=== PATIENT | male | born 1950 | race African-American/Black ===

== ENCOUNTER 2018-06-07 20:47 | Emergency (ER) | payer OTHER ==
--- NOTE | 2018-06-07 21:02 | PDOC ---
Attending Attestation - Resident Resident Name: Bentley - ED Attending Attestation I have performed the following: I have examined & evaluated the patient, The case was reviewed & discussed with the resident, I agree w/resident's findings & plan, Exceptions are as noted - HPI HPI: 06/07/18 22:07 Mr Davis is a 67 yo M h/o Downs Syndrome, Alzheimers dementia who presents from his facility due to an episode of emesis vs. cough Pt is s/p a recent admission to this facility for pneumonia (and ? possible admission to OSH for the same) Pt was reported by nursing supervisor lens generating (Jacques) to have several episodes of emesis vs productive cough - Physicial Exam PE: 06/07/18 22:24 Awake and alert Responsive to examiner RRR Lung are clear to auscultation no abd tenderness to palpation No lower extremity edema - Medical Decision Making 06/07/18 22:25 pt observed in the ER Demonstrates no tachycardia, hypoxia, hypotension, tachypnea Will discharge to home follow up with PMD Return to the ER for any other concerns or complaints <Verenice Bryant - Last Filed: 06/07/18 22:07> - HPI HPI: 06/07/18 22:29 The patient is a 67-year-old male with past medical history significant for MR, down syndrome, Alzheimer's hypothyroidism, GOUT, HTN, hearing loss, HLD, and cardiomyopathy presents to the emergency department with a cough. As per aide present, the patient had a productive cough, with phlegm production. The aide states patient is at baseline and interactive. Unable to get a detailed history due to the patients mental status. Allergies: brimonidine (alphagan) and clams. Social history: Unknown Surgical history: Unknown. PCP: [facility] Neurology: Dr. Ran Mariscal Nephrology: Dr. Tristian Wilson. <Elizabeth Mathew - Last Filed: 06/07/18 22:29>
[2018-06-07 21:10] VITALS: BMI 26.5
[2018-06-07 22:20] VITALS: PULSE 63
[2018-06-07 22:22] VITALS: BP 138/75; TEMP 98
--- NOTE | 2018-06-07 22:34 | PDOC ---
History of Present Illness - General Stated Complaint: VOMITING Time Seen by Provider: 06/07/18 21:02 History Source: Care Provider, Old Records Exam Limitations: Dementia - History of Present Illness Initial Comments: 67 y/o male presenting to [facility] ER from [facility] via facility car with conflicting reports. Pt is diagnosed with Down's Syndrome, Alzheimer's Dementia , and is an unreliable. He is accompanied by his therapist, Susie Luo. She reports Brian spit up clear phlegm once this evening; something he does with some frequency. She has been present with the pt all day, and denies observing mental status changes, behavioral changes, vomiting, coughing, difficulty breathing, or other signs of illness. She states, he does not look sick. Telephone conversation with nurse manager database at [facility], Aba, who reports the pt vomited copious amounts of emesis three times today as well as a change in mental status. He sent the pt to the hospital with concern, as the pt was recently discharged from [facility] after admission for pneumonia. Therapist Luo refutes these claims and notes the nurse manager database was only around the pt briefly for evening rounds. 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 BPH Past History - Past Medical History Allergies/Adverse Reactions: Allergies Allergy/AdvReac Type Severity Reaction Status Date / Time brimonidine [From Alphagan P] Allergy Verified 06/07/18 21:04 clams Allergy Verified 06/07/18 21:04 Home Medications: Ambulatory Orders Albuterol 0.083% Nebulizer Michelle [Ventolin 0.083% Nebulizer Soln -] 1 neb NEB Q4H 03/31/18 Allopurinol [Zyloprim -] 100 mg PO DAILY 03/31/18 Eyelid Cleanser Combination 9 [Systane] 1 each TP HS 03/31/18 Levothyroxine [Synthroid -] 75 mcg PO DAILY 03/31/18 Memantine HCl [Namenda -] 10 mg PO BID 03/31/18 Polyvinyl Alcohol [Liquitears] 15 ml OP QID 03/31/18 Sodium Chloride [Saline Nose [place]] 0.65 ml NS TID 03/31/18 Tamsulosin HCl 0.4 mg PO ASDIR 03/31/18 Travoprost [Travatan Z] 5 ml OP HS 03/31/18 Calcium Carbonate/Vitamin D3 [Calcium 500-Vit D3 200 Caplet] PO BID 04/02/18 Dextromethorphan HBr/Quinidine [Nuedexta 20-10 mg Capsule] 10 mg PO DAILY Donepezil HCl 10 mg PO BID 04/02/18 Doxycycline Monohydrate [Mondoxyne Nl] 100 mg PO BID #11 capsule 04/02/18 COPD: No HTN: Yes Hypercholesterolemia: Yes Psychiatric Problems: (down syndrome) Thyroid Disease: Yes - Suicide/Smoking/Psychosocial Hx Smoking History: Never smoked Have you smoked in the past 12 months: No Information on smoking cessation initiated: No Hx Alcohol Use: No Drug/Substance Use Hx: No Substance Use Type: None Hx Substance Use Treatment: No Review of Systems - Review of Systems Able to Perform ROS?: No Comments:: Pt demented and unreliable at baseline. *Physical Exam - Vital Signs Last Vital Signs Temp Pulse Resp BP Pulse Ox 98.0 F 63 17 138/75 98 06/07/18 22:20 06/07/18 22:20 06/07/18 22:20 06/07/18 22:20 06/07/18 22:20 - Physical Exam Comments: Constitutional: Well-appearing, non-toxic male in no acute distress or obvious discomfort.. Found semi-fowlers on hospital bed. Alert and at mental baseline per therapist; answered to his name when called by therapist. Physical exam was somewhat limited as pt would not follow all commands, which is again reported to be baseline. HEENT: Normocephalic. No obvious external signs of trauma. Sclerae white. Conjunctiva moist and not injected. No rhinorrhea. Hearing grossly normal. No nasal discharge. Neck is supple, trachea is midline. No JVD. Cardiovascular: Regular rate and regular rhythm. 2/5 systolic murmur without rubs, clicks, or gallops. Peripheral pulses: Radial pulses full. Respiratory: Stable on room air. No tachypnea, coughing, or sneezing. Breathing unlabored without retractions or tugging. Equal chest rise and fall. Clear to auscultation bilaterally. No stridor, no wheezing, no rhonchi. Gastrointestinal: abdomen is soft, non-tender, non-distended. Neuro: Alert and oriented. Moving all four extremities spontaneously. Skin: Warm, dry, and intact. No bruising, rashes, or other lesions. Medical Decision Making - Medical Decision Making *Reviewed vital signs, nursing notes, and prior visit documentation (if available). 67 y/o male with unclear event leading to arrival in this department. Therapist , who is present at bedside and reportedly spent the entire day with the pt, denies signs/symptoms of illness as described by facility nurse manager database. Afebrile. Vitals unremarkable for hypotension or tachycardia. Benign physical exam. Very low suspicion for active illness. Do not believe any laboratory testing or imaging is required at this time. Will observe pt in the department for repeat vitals and any developing signs of acute illness. 22:15 On repeat exam, pt continues to be well appearing. Interacted with both myself and his therapist. Repeat respiratory exam and vitals remain well assuring. Continue to have very low suspicion for acute illness. 22:25 Second telephone conversation with Aba nurse manager database. Reported pts benign exam and unremarkable vitals. Agreed to receive pt back at the facility. Discussed vitals and physical exam with therapist. Answered all questions. Provided return precautions. Pt expressed verbal understanding and agreement with plan to discharge home with outpatient follow up as needed. *DC/Admit/Observation/Transfer Diagnosis at time of Disposition: History of vomiting - Discharge Dispostion Disposition: HOME Condition at time of disposition: Good Decision to Admit order: No - Referrals Referrals: Family [facility] [Other] (Primary Care Practice of record) - Patient Instructions Printed Discharge Instructions: DI for Vomiting -- Adult Additional Instructions: Brian is very well appearing in the emergency department this evening without return of described signs of acute illness from earlier this evening. He should follow up with his primary care physician as needed. No change has been made to his medication regimen. He should be brought to the nearest emergency department if he begins to experience trouble breathing, an altered mental status, his condition acutely worsens, or you feel like he needs additional emergency evaluation. Print Language: GEORGIAN - Post Discharge Activity
== END 2018-06-07 23:05 | disposition home or self-care (01) ==
LOC: JER 20:47
DX: R11.10 Vomiting, unspecified (principal); I10 Essential (primary) hypertension; E78.5 Hyperlipidemia, unspecified; I34.1 Nonrheumatic mitral (valve) prolapse; I34.0 Nonrheumatic mitral (valve) insufficiency; M10.9 Gout, unspecified; H91.93 Unspecified hearing loss, bilateral; H40.9 Unspecified glaucoma; N40.0 Benign prostatic hyperplasia without lower urinary tract symptoms; I42.8 Other cardiomyopathies
CPT/HCPCS: 99282-25

== ENCOUNTER 2018-06-08 20:24 | Emergency (ER) | payer OTHER ==
--- NOTE | 2018-06-08 21:11 | PDOC ---
History of Present Illness - General Stated Complaint: FALL Time Seen by Provider: 06/08/18 20:34 History Source: Care Provider Exam Limitations: No Limitations - History of Present Illness Initial Comments: 06/08/18 21:04 Patient is a 67-year-old male MR, Down's syndrome with history of gout, glaucoma , HLD, dementia, hypothyroid, BPH, brought in by the aide for fall/head injury which occurred this evening. States that the fall was not witnessed by him however the patient was sitting on the couch and then fell off hitting his head. States patient is acting normally, he is had no nausea or vomiting. History is limited to the patient dementia. PMD: Referred to family practice PMHX: as above PSOCHX: Lives in a residence ALL: Alphagan eyedrops GENERAL/CONSTITUTIONAL: Limited due to dementia. RESPIRATORY: [No cough, wheezing, GASTROINTESTINAL: [No nausea, vomiting, MUSCULOSKELETAL: [No joint or muscle swelling or pain. No neck or back pain.] SKIN AND BREASTS: [(+) bruising.] NEUROLOGIC: [No loss of consciousness, or loss of sensation.] PSYCHIATRIC: [No depression or anxiety.] GENERAL: [The patient is awake, alert, oriented x 1, in no acute distress.] HEAD: [Normal with (+) signs of traum brusing to the forehead] EYES: [Pupils equal, round and reactive to light, extraocular movements intact, sclera anicteric, conjunctiva clear.] NECK: [Normal range of motion, supple without lymphadenopathy, JVD, or masses.] LUNGS: [Breath sounds equal, clear to auscultation bilaterally. No wheezes, and no crackles.] HEART: [Regular rate and rhythm, normal S1 and S2 without murmur, rub.] ABDOMEN: [Soft, nontender, normoactive bowel sounds. No guarding, no rebound. No masses.] EXTREMITIES: [Normal range of motion, no edema. No clubbing or cyanosis. No cords, erythema, or tenderness.] NEUROLOGICAL: Normal speech, normal gait.] PSYCH: [Normal mood, normal affect.] SKIN: [Warm, Dry, normal turgor, (+) bruising to the forehead, 06/08/18 22:01 Past History - Past Medical History Allergies/Adverse Reactions: Allergies Allergy/AdvReac Type Severity Reaction Status Date / Time brimonidine [From Alphagan P] Allergy Verified 06/07/18 21:04 clams Allergy Verified 06/07/18 21:04 Home Medications: Ambulatory Orders Albuterol 0.083% Nebulizer [place] [Ventolin 0.083% Nebulizer Soln -] 1 neb NEB Q4H 03/31/18 Allopurinol [Zyloprim -] 100 mg PO DAILY 03/31/18 Eyelid Cleanser Combination 9 [Systane] 1 each TP HS 03/31/18 Levothyroxine [Synthroid -] 75 mcg PO DAILY 03/31/18 Memantine HCl [Namenda -] 10 mg PO BID 03/31/18 Polyvinyl Alcohol [Liquitears] 15 ml OP QID 03/31/18 Sodium Chloride [Saline Nose [place]] 0.65 ml NS TID 03/31/18 Tamsulosin HCl 0.4 mg PO ASDIR 03/31/18 Travoprost [Travatan Z] 5 ml OP HS 03/31/18 Calcium Carbonate/Vitamin D3 [Calcium 500-Vit D3 200 Caplet] PO BID 04/02/18 Dextromethorphan HBr/Quinidine [Nuedexta 20-10 mg Capsule] 10 mg PO DAILY Donepezil HCl 10 mg PO BID 04/02/18 Doxycycline Monohydrate [Mondoxyne Nl] 100 mg PO BID #11 capsule 04/02/18 COPD: No HTN: Yes Hypercholesterolemia: Yes Psychiatric Problems: (down syndrome) Thyroid Disease: Yes - Suicide/Smoking/Psychosocial Hx Smoking History: Never smoked Have you smoked in the past 12 months: No Hx Alcohol Use: No Drug/Substance Use Hx: No Substance Use Type: None Hx Substance Use Treatment: No ED Treatment Course - RADIOLOGY Radiology Studies Ordered: Category Date Time Status CERVICAL SPINE CT W/O CONTR [CT] Stat CT Scan 06/08/18 20:[address] WITHOUT CONTRAST [CT] Stat CT Scan 06/08/18 20:43 Ordered Medical Decision Making - Medical Decision Making 06/08/18 21:04 Patient is a 67-year-old male MR, Down's syndrome with history of gout, glaucoma , HLD, dementia, hypothyroid brought in by the aide for fall/head injury which occurred this evening. CT head and c-spine reassess Patient Full Name: PARVEEN JOHNSTON Patient Accession No: [id number] Patient : 1950 Reason for Exam: fall Referring Physician: Patient Name: PRESTON SAINI THIS IS A PRELIMINARY REPORT FROM [facility] [facility] DATE OF SERVICE: 2018-06-08 23:53:10 IMAGES: [id number] EXAM: CT CERVICAL SPINE WITHOUT CONTRAST No acute fracture. Multilevel spondylosis. Minimal anterolisthesis C1 over C2, probably degenerative. Reversal of cervical lordosis, possibly due to positioning or muscle spasm. Minimal rotation C1-C2, probably positional. Hypoplastic bilateral mastoid air cells. Questionable partial opacification both middle ear cavities, correlate clinically for otitis media. Patulous esophagus containing air and trace debris. Individualized dose optimization techniques were used for this CT. THIS DOCUMENT HAS BEEN ELECTRONICALLY SIGNED Catherine Natarajan M.D. 06/09/2018 00:40 EST Disha. Please call [facility] [phone]) with questions. INTERPRETING RADIOLOGIST: Catherine Natarajan MD Electronically Signed: Jun 09, 2018 12:40AM EDT Patient Full Name: PARVEEN JOHNSTON Patient Accession No: [id number] Patient : 1950 Reason for Exam: bleed Referring Physician: Patient Name: PRESTON SAINI THIS IS A PRELIMINARY REPORT FROM [facility] DATE OF SERVICE: 2018-06-08 23:56:09 IMAGES: [id number] EXAM: CT HEAD WITHOUT CONTRAST No acute brain parenchymal abnormality. No hemorrhage, mass or acute territorial infarct. Enlarged ventricles, disproportionate to sulcal enlargement, correlate clinically for normal pressure hydrocephalus. Clear visualized paranasal sinuses. Visualized mastoid air cells clear. Individualized dose optimization techniques were used for this CT. THIS DOCUMENT HAS BEEN ELECTRONICALLY SIGNED Catherine Natarajan M.D. 06/09/2018 00:15 EST Deanna Please call [facility] [phone] with questions. INTERPRETING RADIOLOGIST: Catherine Natarajan MD Electronically Signed: Jun 09, 2018 12:15AM EDT 06/09/18 00:47 I discussed the physical exam findings, ancillary test results and final diagnoses with the lab coordinator. I answered all of the lab coordinator's questions. The lab coordinator was satisfied with the care received and felt comfortable with the discharge plan and treatment plan. The lab coordinator agrees to follow up with the primary care physician within 24-72 hours. *DC/Admit/Observation/Transfer Diagnosis at time of Disposition: Contusion of forehead Qualifiers: Encounter type: initial encounter Qualified Code(s): S00.83XA - Contusion of other part of head, initial encounter Closed head injury Qualifiers: Encounter type: initial encounter Qualified Code(s): S09.90XA - Unspecified injury of head, initial encounter - Discharge Dispostion Disposition: HOME Condition at time of disposition: Stable - Referrals - Patient Instructions Printed Discharge Instructions: DI for Closed Head Injury, DI for Contusion Additional Instructions: Your Discharge Instructions: You must call primary care physician within 24 hours to arrange follow-up. Return to the Emergency Department with any new, persistent or worsening symptoms, for fever, chills, SOB, dizziness or any other concerning changes that may occur. He shouldn't develops nausea, vomiting and severe headache return to the emergency room immediately - Post Discharge Activity
[2018-06-08 22:51] VITALS: TEMP 97.7
[2018-06-08 23:10] VITALS: BP 142/76; PULSE 60; BMI 26.6
[2018-06-08] MEDS ORDERED: LORazepam 2 MG/ML SDV VIAL ONE (23:50)
== END 2018-06-09 01:37 | disposition home or self-care (01) ==
LOC: JER 20:24
DX: S00.83XA Contusion of other part of head, initial encounter (principal); W08.XXXA Fall from other furniture, initial encounter; Y93.89 Activity, other specified; Y92.198 Other place in other specified residential institution as the place of occurrence of the external cause; Y99.8 Other external cause status; Q90.9 Down syndrome, unspecified; F79 Unspecified intellectual disabilities; M10.9 Gout, unspecified; H40.9 Unspecified glaucoma; F03.90 Unspecified dementia, unspecified severity, without behavioral disturbance, psychotic disturbance, mood disturbance, and anxiety; E03.9 Hypothyroidism, unspecified; N40.0 Benign prostatic hyperplasia without lower urinary tract symptoms
CPT/HCPCS: 70450-TC; 72125-TC; 99281-25